=== PATIENT | female | born 1995 | race American Indian/Alaskan Native ===

== ENCOUNTER 2019-12-19 19:03 | Emergency (ER) | payer BC ==
--- NOTE | 2019-12-19 20:48 | Event Note ---
ED Screening Note Date of service: 12/19/19 Time: 20:46 ED Screening Note: 24-year-old female presents with throat pain pain with swallowing, body aches This initial assessment/diagnostic orders/clinical plan/treatment(s) is/are subject to change based on patients health status, clinical progression and re- assessment by fellow clinical providers in the ED. Further treatment and workup at subsequent clinical providers discretion. Patient/guardian urged not to elope from the ED as their condition may be serious if not clinically assessed and managed. Initial orders include: Chest x-ray, rapid strep test done
--- NOTE | 2019-12-19 21:42 | XRay Report ---
CHEST 2 VIEWS INDICATION: fever. Fever and chills since yesterday COMPARISON: None FINDINGS: SUPPORT DEVICES: None. HEART: Within normal limits. LUNGS/PLEURA: No acute air space or interstitial disease. No pneumothorax. ADDITIONAL FINDINGS: None. IMPRESSION: 1. No acute findings. Signer Name: Jose F Urbano MD Signed: 12/19/2019 9:37 PM Workstation Name: [id number]
[2019-12-19] MEDS ORDERED: ACETAMINOPHEN 500 MG TAB PO ONE (23:15)
[2019-12-19] MEDS ORDERED: BENZONATATE 100 MG CAP PO ONE (23:15)
[2019-12-19] MEDS ORDERED: LIDOCAINE VISCOUS 2% 15 ML ORAL LIQD MM ONE (23:16)
--- NOTE | 2019-12-20 | Emergency Department Report ---
Upper Respiratory HPI - HPI Chief Complaint: Sore Throat Stated Complaint: THROAT PAIN, HEADACHE CHILLS Time Seen by Provider: 12/19/19 22:47 Duration: 3 Days URI Symptoms: Rhinorrhea: Yes, Sore Throat: Yes, Ear Pain: No, Cough: Yes, Shortness of Breath: Yes, Sick Contacts: No, Unable to Take Fluids: No, Urine Output Abnormal: No, Listless Behavior: No Other History: This is a 24-year-old female nontoxic, well nourished in appearance, no acute signs of distress presents to the ED with c/o of productive cough, sore throat, fever, chills, body aches, rhinorrhea, some mild SOB, nasal congestion x2 days. Patient describes productive cough as yellow mucus production. Patient denies any sick contacts. Patient denies any recent travels, long car, recent hospital stays. Patient denies any calf pain or calf tenderness. Patient denies any chest pain, nausea, vomiting, hemoptysis, numbness, tingling, headache or stiff neck. Denies any allergies or significant PMH. - Home Meds and Allergies Allergies/Adverse Reactions: Allergies Allergy/AdvReac Type Severity Reaction Status Date / Time No Known Allergies Allergy Unverified 12/19/19 19:19 ED Review of Systems ROS: Stated complaint: THROAT PAIN, HEADACHE CHILLS Other details as noted in HPI Constitutional: chills, fever Eyes: denies: eye pain, eye discharge, vision change ENT: throat pain. denies: ear pain Respiratory: cough. denies: shortness of breath, wheezing Cardiovascular: denies: chest pain, palpitations Endocrine: no symptoms reported Gastrointestinal: denies: abdominal pain, nausea, diarrhea Genitourinary: denies: urgency, dysuria, discharge Musculoskeletal: denies: back pain, joint swelling, arthralgia Skin: denies: rash, lesions Neurological: denies: headache, weakness, paresthesias Psychiatric: denies: anxiety, depression Hematological/Lymphatic: denies: easy bleeding, easy bruising ED Past Medical Hx - Past Medical History Previous Medical History?: No - Surgical History Past Surgical History?: No - Social History Smoking Status: Never Smoker Substance Use Type: Marijuana ED Bronchiolitis Physical Exam - Exam General: Vital signs noted. No distress. Alert and acting appropriately. Neurologic: Alert and oriented, no deficits. Musculoskeletal: Unremarkable. ED Bronchiolitis Tests - Testing Testing: CXR: Normal/Negative ED Physical Exam - General Limitations: No Limitations General appearance: alert, in no apparent distress - Head Head exam: Present: atraumatic, normocephalic - Eye Eye exam: Present: normal appearance - Expanded ENT Exam Expanded Ear exam: Present: normal external inspection Mouth exam: Present: normal external inspection, tongue normal. Absent: drooling, trismus, muffled voice Teeth exam: Present: normal inspection Throat exam: Positive: tonsillar erythema, other (uvula midline). Negative: tonsillomegaly, tonsillar exudate, R peritonsillar mass, L peritonsillar mass - Neck Neck exam: Present: normal inspection - Respiratory Respiratory exam: Present: normal lung sounds bilaterally. Absent: respiratory distress, wheezes, rales, rhonchi, stridor, chest wall tenderness, accessory muscle use, decreased breath sounds, prolonged expiratory - Cardiovascular Cardiovascular Exam: Present: regular rate, normal rhythm, tachycardia, normal heart sounds. Absent: irregular rhythm, systolic murmur, diastolic murmur, rubs, gallop - Extremities Exam Extremities exam: Present: normal inspection, full ROM - Back Exam Back exam: Present: normal inspection, full ROM. Absent: tenderness, CVA tenderness (R), CVA tenderness (L), muscle spasm, paraspinal tenderness, vertebral tenderness, rash noted - Neurological Exam Neurological exam: Present: alert, oriented X3, normal gait - Psychiatric Psychiatric exam: Present: normal affect, normal mood - Skin Skin exam: Present: warm, dry, intact, normal color. Absent: rash ED Course Vital Signs 12/19/19 19:16 Temperature 100.4 F H Pulse Rate 103 H Respiratory 18 Rate Blood Pressure 141/72 O2 Sat by Pulse 100 Oximetry Vital Signs 12/19/19 12/20/19 19:16 00:48 Temperature 100.4 F H 103.1 F H Pulse Rate 103 H 99 H Respiratory 18 20 Rate Blood Pressure 141/72 Blood Pressure 149/89 [Left] O2 Sat by Pulse 100 100 Oximetry - Reevaluation(s) Reevaluation #1: 12/19/19 23:59 Patient is speaking in full sentences with no signs of distress noted. ED Medical Decision Making - Lab Data Lab Results 12/19/19 Range/Units Unknown Group A Strep Rapid Negative (Negative) - Radiology Data Referring Physician: NABEEL MORALES Patient Name: TANJA GRAHAM Date of : 1995 Sex: Female Report Date: 2019-12-19 Report Status: Finalized [facility] [address] [place] [address] XRay Report Signed Patient: TANJA GRAHAM MR#: [id number] 330 : 1995 Acct:[id number] Age/Sex: 24 / F ADM Date: 12/19/19 Loc: ED Attending Dr: Ordering Physician: FIONA THOMAS Date of Service: 12/19/19 Procedure(s): XR chest routine 2V Accession Number(s): [id number] cc: FIONA THOMAS Fluoro Time In Minutes: CHEST 2 VIEWS INDICATION: fever. Fever and chills since yesterday COMPARISON: None FINDINGS: SUPPORT DEVICES: None. HEART: Within normal limits. LUNGS/PLEURA: No acute air space or interstitial disease. No pneumothorax. ADDITIONAL FINDINGS: None. IMPRESSION: 1. No acute findings. Signer Name: Jose F Urbano MD Signed: 12/19/2019 9:37 PM Workstation Name: [id number] Transcribed By: DARREL Dictated By: Jose F Urbano MD Electronically Authenticated By: Jose F Urbano MD Signed Date/Time: 12/19/192136 - Medical Decision Making This is a 24-year-old female that presents with suspected COVID and pharyngitis. Patient is stable and was examined by me. Chest x-ray has been obtained and dictated by radiologist with normal exam. Patient is notified of x-ray results with no questions noted. Patient was instructed and educated on signs and symptoms and to self quarantine and seek medical attention as soon as possible if symptoms worsen. PAtient refused Tylenol or any other treatment due to stated that her mom told her to see her PCP rather then getting treatment as it can worsen possible COVID. Patient was educated that Tylenol is safe for COVID but patient still refused. Unable to reevaluate patient due to patient signing AMA. At time time of signing AMA, the patient does not seem toxic or ill in appearance. No acute signs of distress noted. No further questions noted by the patient.nt. Critical care attestation.: If time is entered above; I have spent that time in minutes in the direct care of this critically ill patient, excluding procedure time. ED Disposition Clinical Impression: Suspected 2019 novel coronavirus infection Pharyngitis Qualifiers: Pharyngitis/tonsillitis etiology: unspecified etiology Qualified Code(s): J02.9 - Acute pharyngitis, unspecified Disposition: MED SCREENING EXAM-LEFT Is pt being admited?: No Does the pt Need Aspirin: No Condition: Undetermined Instructions: COVID-19 Additional Instructions: Follow-up with a primary care doctor in [place] or if symptoms worsen and continue return to emergency room as soon as possible. You are leaving AGAINST MEDICAL ADVICE. As instructed and educated to you during your ED stay that this is a serious medical condition and if not further evaluated and or treated this could cause serious complications and or . As educated and instructed to you must self quarantine yourself and people that you have been in close contact with similar symptoms for the next 14 days. Please see your nearest health department or primary care doctor that you are referred to for COVID testing. Increased rest, hydration, and take Tylenol as prescribed for fever episode. Referrals: PRIMARY CARE, [Primary Care Provider] - [facility] RIN EVERETT MD [Staff Physician] - [facility] Forms: AMA Form Time of Disposition: 00:46
[2019-12-20 00:49] VITALS: BP 149/89
== END 2019-12-20 01:20 | disposition left against medical advice (07) ==
LOC: ED 19:03
DX: J02.9 Acute pharyngitis, unspecified (principal); F12.10 Cannabis abuse, uncomplicated; Z20.828 Contact with and (suspected) exposure to other viral communicable diseases
CPT/HCPCS: 71046; 87116; 87430